=== PATIENT | male | born 1955 | race Caucasian/White ===

== ENCOUNTER 2019-05-14 10:03 | Day surgery (SDC) | payer BC, OTHER ==
[~2019-05-14] VITALS: Ht 182.9 cm; Wt 90.9 kg
[2019-05-14 16:46] VITALS: BP 142/81
== END 2019-05-14 18:54 | disposition home or self-care (01) ==
LOC: CACL 10:03 → 5SO 15:59 → CACL 18:54
PROVIDERS: ATTEND Internal Medicine Cardiovascular Disease
DX: I45.89 Other specified conduction disorders (principal); I48.91 Unspecified atrial fibrillation; I48.92 Unspecified atrial flutter; F41.9 Anxiety disorder, unspecified; G47.33 Obstructive sleep apnea (adult) (pediatric); I10 Essential (primary) hypertension
CPT/HCPCS: 33208; 71045; C1779; C1785; C1892; J0330; J0360; J0690; J1100; J2250; J2405; J2704; J3010; J3360; G0378

== ENCOUNTER → 2020-11-16 | Outpatient (CLI) | payer OTHER ==
[~2020-11-16] MED LIST: ALPR0.5T93 PO; GADOTERATE 10 MMOL/20 ML VIAL ONE; HYDR-3237 PO
== END | disposition home or self-care (01) ==
LOC: RAD 08:10
PROVIDERS: ATTEND Specialist
DX: D33.3 Benign neoplasm of cranial nerves (principal); J34.1 Cyst and mucocele of nose and nasal sinus; H90.3 Sensorineural hearing loss, bilateral
CPT/HCPCS: 70553; A9575

== ENCOUNTER 2021-05-31 06:37 | Outpatient (CLI) | payer OTHER ==
[~2021-05-31 06:37] MED LIST changes: -GADOTERATE 10 MMOL/20 ML VIAL ONE
[2021-05-31] MEDS ORDERED: GADOTERATE 10 MMOL/20ML SYR ONE (17:54)
== END 2021-05-31 23:59 | disposition home or self-care (01) ==
LOC: RAD 06:37 → EDSTATUS 07:30 → RAD 23:59
PROVIDERS: ATTEND Specialist
DX: D33.3 Benign neoplasm of cranial nerves (principal); H90.3 Sensorineural hearing loss, bilateral; G93.89 Other specified disorders of brain
CPT/HCPCS: 70553; A9575